=== PATIENT | male | born 1945 | race Caucasian/White ===

== ENCOUNTER 2021-11-23 15:31 | Emergency (ER) | payer MEDICARE ==
[~2021-11-23] VITALS: Ht 190.5 cm; Wt 131.8 kg
[2021-11-23] MEDS ORDERED: CEPHALEXIN500 MG PO (17:24)
[2021-11-23] MEDS ORDERED: BACTRIM DS1 TAB PO (17:24)
[2021-11-23 17:46] VITALS: BP 149/84
[2021-11-28] MEDS ORDERED: LISINOP/HCTZ1 TA1 PO (14:00)
[2021-11-28] MEDS ORDERED: OMEPRAZOLE20 MG PO (14:01)
[2021-11-28] MEDS ORDERED: LIPITOR20 M1 PO (14:01)
[2021-11-28] MEDS ORDERED: NORVASC2.5 M1 PO (14:01)
[2021-11-28] MEDS ORDERED: METFORMIN500 M2 PO (14:01)
== END 2021-11-23 17:47 | disposition home or self-care (01) ==
LOC: ED 15:31
PROC: 0H97XZZ Drainage of Abdomen Skin, External Approach (ICD-10-PCS; principal; 2021-11-23)
DX: L02.211 Cutaneous abscess of abdominal wall (principal); I10 Essential (primary) hypertension; E11.9 Type 2 diabetes mellitus without complications; E66.9 Obesity, unspecified